=== PATIENT | female | born 1990 | race African-American/Black ===

== ENCOUNTER 2018-10-04 23:55 | Emergency (ER) | payer BC, OTHER ==
[~2018-10-04] VITALS: Ht 172.7 cm; Wt 106.6 kg
[~2018-10-04 23:55] MED LIST: ALBU18HF2 IH; DIPH25CA83 PO
--- NOTE | 2018-10-05 00:11 | NUR ---
DR. CARSON AT BEDSIDE FOR MSE.
[2018-10-05] MEDS ORDERED: NEOMY/BACITRA/POLYMYXIN B OINT UD PACKET TP ONE (00:19)
--- NOTE | 2018-10-05 00:25 | NUR ---
WOUND CLEANSED WITH NORMAL SALINE AND TRIPLE ANTIBIOTIC OINTMENT APPLIED AND COVERED WITH BAND-AID. PATIENT TOLERATED WELL.
[2018-10-05] MEDS ORDERED: BACITRACIN/POLYMYXIN B OINT 15 GM TUBE TOP ONE (00:30)
[2018-10-05] MEDS ORDERED: TDAP DIPH,PERTUSS,TET VAC/PF 0.5 ML DISP.SYRIN IM ONE ×2 (00:30→00:33)
--- NOTE | 2018-10-05 00:48 | NUR ---
Patient discharged to home in stable conditon. Written and verbal after care instructions given. Patient verbalizes understanding of instructions. PATIENT LEFT WITH STABLE GAIT.
[2018-10-05 00:49] VITALS: BP 119/77
== END 2018-10-05 00:49 | disposition home or self-care (01) ==
LOC: ER 23:58
DX: S91.312A Laceration without foreign body, left foot, initial encounter (principal); S09.90XA Unspecified injury of head, initial encounter; J45.909 Unspecified asthma, uncomplicated; Z88.0 Allergy status to penicillin; Z88.1 Allergy status to other antibiotic agents; W18.2XXA Fall in (into) shower or empty bathtub, initial encounter; Y93.89 Activity, other specified; Y92.89 Other specified places as the place of occurrence of the external cause; Y99.8 Other external cause status
CPT/HCPCS: 90715; A4663

== ENCOUNTER 2021-11-02 14:17 | Emergency (ER) | payer BC ==
[~2021-11-02] VITALS: Ht 172.7 cm; Wt 120.2 kg
[2021-11-02] MEDS ORDERED: BUPR300T52 PO (14:30)
[2021-11-02 14:43] LABS: *BILIRUBIN,URIN NEGATIVE (NEGATIVE); *CLARITY,URINE CLEAR (CLEAR); *COLOR,URINE YELLOW (YELLOW); *KETONES,URINE NEGATIVE (NEGATIVE); *UROBILINOGEN,URINE 0.2 E.U./dl (NORMAL); LEUKOCYTE ESTERASE ,URINE NEGATIVE (NEGATIVE); NITRITE, URINE NEGATIVE (NEGATIVE); UGLUCOSE NEGATIVE (NEGATIVE)
[2021-11-02 14:48] LABS: *BLOOD, URINE TRACE (NEGATIVE)
[2021-11-02 14:59] LABS: HEMATOCRIT 37.5 % (31.2-41.9); MEAN CORPUSCULAR VOLUME 85.7 fL (75.5-95.3); PLATELET COUNT (AUTO) 315 K/uL (179-408)
[2021-11-02 15:01] LABS: *URINE HCG, QUAL NEGATIVE (NEGATIVE)
[2021-11-02 15:06] LABS: CREATININE 1.1 mg/dL (0.6-1.3); POTASSIUM 3.6 mmol/L (3.5-5.1)
[2021-11-02 15:12] LABS: BILIRUBIN,TOTAL 0.3 mg/dL (0.2-1.0); TOTAL PROTEIN, SERUM 8.7 g/dL (6.4-8.2)
--- NOTE | 2021-11-02 16:43 | NUR ---
Gave pt d/c instructions, pt verbalized understanding.
[2021-11-02 18:48] LABS: BACTERIA,URINE FEW /HPF (NONE SEEN); RBC,URINE 0-3 /HPF (0-3); SQUAMOUS EPITHELIAL CELL,UR MODERATE /HPF (NONE SEEN); WBC,URINE 0-3 /HPF (0-3)
== END 2021-11-02 16:46 | disposition home or self-care (01) ==
LOC: ER 14:17
DX: N83.201 Unspecified ovarian cyst, right side (principal); J45.909 Unspecified asthma, uncomplicated; K58.0 Irritable bowel syndrome with diarrhea; Z88.0 Allergy status to penicillin; Z82.5 Family history of asthma and other chronic lower respiratory diseases; Z86.011 Personal history of benign neoplasm of the brain; Z98.890 Other specified postprocedural states
CPT/HCPCS: 36415; 83690; 84703; 85025; A4663